=== PATIENT | male | born 2000 | race Hispanic/Latino ===

== ENCOUNTER 2021-10-25 04:21 | Emergency (ER) | payer OTHER, SELFPAY ==
[2021-10-25 04:31] LABS: Urine Blood Negative (Negative); Urine Glucose Negative (Negative); Urine Protein 1+ (Negative); Urine Specific Gravity 1.025 (1.005-1.030); Urine pH 5.5 (5.0-7.0)
[2021-10-25 04:54] LABS: SARS-CoV-2 Antigen Rapid Res Negative (Negative)
[2021-10-25 04:55] LABS: Absolute Lymphocytes (CBC) 2.1 K/uL (0.7-4.9); Hematocrit 44.7 % (39.6-49.0); Lymphocytes % 26.8 % (15.3-44.8); MPV 8.4 fL (7.6-11.3); RBC Red Blood Cell Count 5.39 M/uL (4.33-5.43)
[2021-10-25 04:58] LABS: Protime INR 1.28
[2021-10-25 04:59] LABS: Barbiturates NEGATIVE (NEGATIVE); Benzodiazepines NEGATIVE (NEGATIVE); Cocaine NEGATIVE (NEGATIVE); METHAMPHETAM NEGATIVE (NEGATIVE); Methadone NEGATIVE (NEGATIVE); Opiates NEGATIVE (NEGATIVE); Phencyclidine NEGATIVE (NEGATIVE); THC Cannibis POSITIVE (NEGATIVE)
[2021-10-25] MEDS ORDERED: NA CHLORIDE 0.9% 1,000 ML ONE (05:18)
[2021-10-25 05:20] LABS: ALT/SGPT 38 U/L (12-78); AST/SGOT 32 U/L (15-37); Alkaline Phosphatase 62 U/L (45-117); BUN Blood Urea Nitrogen 14 mg/dL (7-18); Bicarbonate 27 mmol/L (21-32); Bilirubin Direct 0.3 mg/dL (0-0.2); Bilirubin Total 1.2 mg/dL (0.2-1.0); Glomerular Filtration Rate 97 ml/min (=/>90); Glucose Level 100 mg/dL (74-106); Potassium 3.4 mmol/L (3.5-5.1); Protein, Total 8.8 g/dL (6.4-8.2); Sodium Level 138 mmol/L (136-145)
--- NOTE | 2021-10-25 06:30 | ER ---
Nurse's Notes [facility] Name: Huy Esquivel Age: 21 yrs Sex: Male : 2000 Arrival Date: 10/25/2021 Time: 04:24 Bed 17 Private MD: Diagnosis: Adjustment disorder with depressed mood;Suicidal ideations;Suicide attempt Presentation: 10/25 04:37 Chief complaint: EMS states: "We were toned out to a patient that took 17 10mg vc1 escitaloprams in suicide attempt. Pt informed us this is the third attempt. Pt stated he took them around 0350. VS 131/81 100% RA Pulse 78. Coronavirus screen: Vaccine status: Patient reports receiving the 1st dose of the Covid vaccine. Moderna At this time, the client does not indicate any symptoms associated with coronavirus-19. Ebola Screen: No symptoms or risks identified at this time. Initial Sepsis Screen: Does the patient meet any 2 criteria? No. Patient's initial sepsis screen is negative. Does the patient have a suspected source of infection? No. Patient's initial sepsis screen is negative. Risk Assessment: Do you want to hurt yourself or someone else? Patient reports desire/thoughts of hurting themselves or someone else. Provider notified. Onset of symptoms was October 25, 2021 at 03:50. 04:37 Method Of Arrival: EMS: [facility] vc1 04:37 Acuity: TAN 3 vc1 05:01 Acuity: TAN 2 tw5 05:06 Chief complaint: Patient states: "Me and my girlfriend was arguing and I got really sad vc1 and took a bunch of pills trying to off myself. My girlfriend called 911.". Triage Assessment: 04:46 General: Appears in no apparent distress. slender, Behavior is cooperative. Pain: vc1 Denies pain. EENT: No deficits noted. Neuro: Level of Consciousness is awake, alert, obeys commands, Oriented to person, place, time, situation, Appropriate for age. Cardiovascular: No deficits noted. Respiratory: Airway is patent Respiratory effort is even, unlabored, Respiratory pattern is regular, symmetrical. GI: No deficits noted. : No deficits noted. No signs and/or symptoms were reported regarding the genitourinary system. Derm: healing lacerations on left wrist. Musculoskeletal: No deficits noted. No signs and/or symptoms reported regarding the musculoskeletal system. Historical: - Allergies: 04:46 No Known Allergies; vc1 - PMHx: 04:46 None; vc1 - PSHx: 04:46 None; vc1 - Immunization history:: Client reports receiving the 1st dose of the Covid vaccine. - Social history:: Smoking status: Patient denies any tobacco usage or history of. Screenin:03 Abuse screen: Denies threats or abuse. Nutritional screening: No deficits noted. vc1 Tuberculosis screening: No symptoms or risk factors identified. Fall Risk None identified. Assessment: 04:34 Reassessment: Spoke with poison control. Possible outcomes include DISTRICT ASSOCIATE JUDGE depression, vc1 Seizures, agitation, QRS prolongation, GI issues and serotonin syndrome. Recommends doing a tox screen, check mg level, EKG, and consult Psych when medically cleared. Also recommends Benzos for agitation, seizures, of beginning of serotonin syndrome. 07:00 Reassessment: upon receiving report nurse states has not completed CSSRS initial tp1 screening form. 08:00 Reassessment: sister at bedside. tp1 08:08 General: Appears in no apparent distress. comfortable, Behavior is calm, cooperative. tp1 Pain: Denies pain. Neuro: Level of Consciousness is awake, alert, obeys commands, Oriented to person, place, time, situation. Cardiovascular: Patient's skin is warm and dry. Respiratory: Airway is patent Respiratory effort is even, unlabored. GI: Abdomen is flat, non-distended. : No signs and/or symptoms were reported regarding the genitourinary system. EENT: No signs and/or symptoms were reported regarding the EENT system. Derm: Skin is pink, warm \\T\\ dry. multiple lacerations to bilateral arms that appear to be healing. Musculoskeletal: Circulation, motion, and sensation intact. 09:49 Reassessment: spoke with Sophia FELICIANO from [place], report given. tp1 Psych: 04:57 [place] Suicide Severity Screening: In the past month, have you wished you were vc1 or wished you could go to sleep and not wake up? Patient responds "yes." Based off the client's responses additional C-SSRS screening is required. "In the past month, have you actually had any thoughts of killing yourself?" Patient responds "yes." Based off the client's response additional [place] suicide severity screening questions to be further documented on paper forms. "In your lifetime, have you ever done anything, started to do anything, or prepared to do anything to end your life?" Patient responds "yes." Patient reports suicidal intent within 3 past months. Patient reports suicidal intent occurred greater than 3 months prior. PT attempted an overdose in 2018 and one other time prior. Subjective: Patient's mood is sad, Delusions are denied, Hallucinations are denied Having thoughts of suicide. Plan for suicide is take pills. Objective: Patient is cooperative, Speech is normal, Affect is flat, Patient has mutilated themselves by lacerations to left wrist. Interventions: Removed personal items and placed in bag. Patient placed in hospital gown. Searched person for dangerous items. Urine collected and sent for urine drug test. Safety Checks: Personal items have been removed. Door is open. No visitors are present at this time. Pt denies substance abuse. Commitment: Patient will be a voluntary commitment. Vital Signs: 04:37 BP 131 / 81; Pulse 78; Resp 15; Temp 98.4; Pulse Ox 100% on R/A; Weight 61.23 kg; vc1 Height 5 ft. 7 in. (170.18 cm); Pain 0/10; 05:43 BP 117 / 78; Pulse 68; Resp 13; Pulse Ox 98% on R/A; ja4 08:07 BP 130 / 75; Pulse 68; Resp 17; Pulse Ox 100% on R/A; tp1 11:39 BP 122 / 70; Pulse 67; Resp 16; Pulse Ox 96% on R/A; tp1 04:37 Body Mass Index 21.14 (61.23 kg, 170.18 cm) vc1 ED Course: 04:24 Patient arrived in ED. vc1 04:25 Yasmani Rivera MD is Attending Physician. [place] 04:35 SARS RAPID Sent. tw5 04:45 Triage completed. vc1 04:57 Arm band placed on right wrist. vc1 05:02 Acetaminophen Sent. mh5 05:02 Basic Metabolic Panel Sent. mh5 05:02 ETOH Level Sent. mh5 05:02 Hepatic Function Sent. 5 05:02 Salicylate Sent. 5 05:03 Initial lab(s) drawn, by nh, sent to lab. Urine collected: clean catch specimen, clear, 5 EKG done, by ED staff, reviewed by Yasmani Rivera MD COVID swab sent to lab. Inserted saline lock: 20 gauge in left antecubital area, using aseptic technique. Blood collected. 05:04 Patient has correct armband on for positive identification. Placed in gown. Bed in low mh5 position. Call light in reach. Side rails up X2. Seizure precautions initiated. Warm blanket given. Pillow given. traffic monitor specialist on. Pulse ox on. NIBP on. 05:43 Stuart Syed, JODIE is Primary Nurse. ja4 07:00 Safety Checks: Personal items have been removed. The door is open or patient has been tp1 placed in a hallway bed/chair. There are no family/friend visitors at this time Other: resting in bed watching TV. 07:00 Report received from Tashi FELICIANO. tp1 08:00 Safety Checks: Personal items have been removed. The door is open or patient has been tp1 placed in a hallway bed/chair. A family member and/or friend is present and encouraged to stay. Other: Visiting with sister. 08:23 Primary Nurse role handed off by Stuart Syed RN tp1 08:23 Leslie Sharpe RN is Primary Nurse. tp1 08:55 faxed patient records to the following facilities in attempt to transfer. [facility]/ [facility]/ and [facility]. 09:00 Safety Checks: Personal items have been removed. The door is open or patient has been tp1 placed in a hallway bed/chair. There are no family/friend visitors at this time Other: resting in bed watching TV. 09:42 connected Luba Feliciano from [facility] with Feli Feliciano for patient transfer eb consultation. 10:09 Safety Checks: Personal items have been removed. The door is open or patient has been tp1 placed in a hallway bed/chair. A family member and/or friend is present and encouraged to stay. Sitter not present at this time due to or because unavailable at this time, charge nurse aware Other: mother at bedside. 10:29 administrative approval given by Lizette Ventura/ patient has been accepted to [facility]/ Dr. Kaplan has accepted the patient in transfer. 11:09 No provider procedures requiring assistance completed. tp1 11:40 IV discontinued, intact, bleeding controlled, No redness/swelling at site. Pressure tp1 dressing applied. Administered Medications: 05:10 Drug: NS 0.9% 1000 ml Route: IV; Rate: 1 bolus; Site: left antecubital; vc1 09:00 Follow up: IV Status: Completed infusion; IV Intake: 1000ml tp1 07:55 Drug: Potassium Effervescent Tablet 25 mEq Route: PO; tp1 09:00 Follow up: Response: No adverse reaction tp1 Medication: 05:07 VIS not applicable for this client. vc1 Intake: 09:00 IV: 1000ml; Total: 1000ml. tp1 Outcome: 06:29 ER care complete, transfer ordered by MD. downing 11:40 Transferred by ground EMS to other acute care facility: [facility] . Transfer tp1 form completed. 11:40 Condition: good 11:40 Instructed on the need for transfer, Demonstrated understanding of instructions. 11:40 Patient left the ED. tp1 Signatures: Yasmani Rivera MD MD cha Martinez, Maria 5 Gracy Garcia Tiffany 5 Leslie Sharpe RN RN tp1 Barbra Mcarthur RN RN vc1 Stuart Syed RN RN ja4 Corrections: (The following items were deleted from the chart) 04:54 04:31 URINE DRUG SCREEN+.LAB.BRZ drawn and sent. 5 EDNH 09:15 07:00 Safety Checks: Personal items have been removed. The door is open or patient has tp1 been placed in a hallway bed/chair. 1 :15 08:00 Safety Checks: Personal items have been removed. The door is open or patient has tp1 been placed in a hallway bed/chair. There are no family/friend visitors at this time tp1 :16 07:00 Safety Checks: Personal items have been removed. The door is open or patient has tp1 been placed in a hallway bed/chair. There are no family/friend visitors at this time tp1 :16 08:00 Safety Checks: Personal items have been removed. The door is open or patient has tp1 been placed in a hallway bed/chair. A family member and/or friend is present and encouraged to stay. tp1 :16 09:00 Safety Checks: Personal items have been removed. The door is open or patient has tp1 been placed in a hallway bed/chair. There are no family/friend visitors at this time tp1 10: 07:00 Safety Checks: Personal items have been removed. The door is open or patient has tp1 been placed in a hallway bed/chair. There are no family/friend visitors at this time Other: resting in bed watching TV tp1 11:39 08:08 Derm: Skin is pink, warm \\T\\ dry. tp1 tp1
--- NOTE | 2021-10-25 06:30 | EDPHYS ---
Physician Documentation [facility] Name: Huy Esquivel Age: 21 yrs Sex: Male : 2000 Arrival Date: 10/25/2021 Time: 04:24 Bed 17 Private MD: ED Physician Yasmani Rivera HPI: 10/25 06:25 This 21 yrs old Male presents to ER via EMS with complaints of suicidal [place] attempt. 06:25 The patient presents to the emergency department with depression, a history of a [place] suicide gesture, where the patient took pills/medications, suicide ideation. Onset: The symptoms/episode began/occurred just prior to arrival. Past psychiatric history: Prior diagnosis: depression. Associated signs and symptoms: The patient has no apparent associated signs or symptoms. Severity of symptoms: At their worst the symptoms were mild in the emergency department the symptoms are unchanged. The patient has experienced similar episodes in the past, several times. Historical: - Allergies: 04:46 No Known Allergies; vc1 - PMHx: 04:46 None; vc1 - PSHx: 04:46 None; vc1 - Immunization history:: Client reports receiving the 1st dose of the Covid vaccine. - Social history:: Smoking status: Patient denies any tobacco usage or history of. ROS: 06:26 Constitutional: Negative for fever, chills, and weight loss, Eyes: Negative for injury, [place] pain, redness, and discharge, ENT: Negative for injury, pain, and discharge, Neck: Negative for injury, pain, and swelling, Cardiovascular: Negative for chest pain, palpitations, and edema, Respiratory: Negative for shortness of breath, cough, wheezing, and pleuritic chest pain, Abdomen/GI: Negative for abdominal pain, nausea, vomiting, diarrhea, and constipation, Back: Negative for injury and pain, : Negative for injury, bleeding, discharge, and swelling, MS/Extremity: Negative for injury and deformity, Skin: Negative for injury, rash, and discoloration, Neuro: Negative for headache, weakness, numbness, tingling, and seizure, Allergy/Immunology: Negative for hives, rash, and allergies, Endocrine: Negative for neck swelling, polydipsia, polyuria, polyphagia, and marked weight changes, Hematologic/Lymphatic: Negative for swollen nodes, abnormal bleeding, and unusual bruising. 06:26 Psych: Positive for depression, suicidal ideation. 06:26 Psych: Positive for suicide gesture. [place] Exam: 06:26 Constitutional: This is a well developed, well nourished patient who is awake, alert, [place] and in no acute distress. Head/Face: Normocephalic, atraumatic. Eyes: Pupils equal round and reactive to light, extra-ocular motions intact. Lids and lashes normal. Conjunctiva and sclera are non-icteric and not injected. Cornea within normal limits. Periorbital areas with no swelling, redness, or edema. ENT: Nares patent. No nasal discharge, no septal abnormalities noted. Tympanic membranes are normal and external auditory canals are clear. Oropharynx with no redness, swelling, or masses, exudates, or evidence of obstruction, uvula midline. Mucous membranes moist. Neck: Trachea midline, no thyromegaly or masses palpated, and no cervical lymphadenopathy. Supple, full range of motion without nuchal rigidity, or vertebral point tenderness. No Meningismus. Chest/axilla: Normal chest wall appearance and motion. Nontender with no deformity. No lesions are appreciated. Cardiovascular: Regular rate and rhythm with a normal S1 and S2. No gallops, murmurs, or rubs. Normal PMI, no JVD. No pulse deficits. Respiratory: Lungs have equal breath sounds bilaterally, clear to auscultation and percussion. No rales, rhonchi or wheezes noted. No increased work of breathing, no retractions or nasal flaring. Abdomen/GI: Soft, non-tender, with normal bowel sounds. No distension or tympany. No guarding or rebound. No evidence of tenderness throughout. Back: No spinal tenderness. No costovertebral tenderness. Full range of motion. Male : Normal genitalia with no discharge or lesions. Skin: Warm, dry with normal turgor. Normal color with no rashes, no lesions, and no evidence of cellulitis. MS/ Extremity: Pulses equal, no cyanosis. Neurovascular intact. Full, normal range of motion. Neuro: Awake and alert, GCS 15, oriented to person, place, time, and situation. Cranial nerves II-XII grossly intact. Motor strength 5/5 in all extremities. Sensory grossly intact. Cerebellar exam normal. Normal gait. Psych: Awake, alert, with orientation to person, place and time. Behavior, mood, and affect are within normal limits. 06:26 ECG was reviewed by the Attending Physician. Vital Signs: 04:37 BP 131 / 81; Pulse 78; Resp 15; Temp 98.4; Pulse Ox 100% on R/A; Weight 61.23 kg; vc1 Height 5 ft. 7 in. (170.18 cm); Pain 0/10; 05:43 BP 117 / 78; Pulse 68; Resp 13; Pulse Ox 98% on R/A; ja4 08:07 BP 130 / 75; Pulse 68; Resp 17; Pulse Ox 100% on R/A; tp1 11:39 BP 122 / 70; Pulse 67; Resp 16; Pulse Ox 96% on R/A; tp1 04:37 Body Mass Index 21.14 (61.23 kg, 170.18 cm) vc1 MDM: 04:25 Patient medically screened. [facility] 10/25 04:25 Order name: Urine Drug Screen; Complete Time: 05:21 [facility] 10/25 04:26 Order name: Acetaminophen; Complete Time: 05: [facility] 10/25 04:26 Order name: Basic Metabolic Panel; Complete Time: 05: [facility] 10/25 04:26 Order name: CBC with Diff; Complete Time: 05: [facility] 10/25 04:26 Order name: ETOH Level; Complete Time: 05: [facility] 10/25 04:26 Order name: Hepatic Function; Complete Time: 05: [facility] 10/25 04:25 Order name: EKG; Complete Time: 04:26 [facility] 10/25 04:25 Order name: EKG - Nurse/Tech; Complete Time: 05:02 [facility] 10/25 04:25 Order name: IV Saline Lock; Complete Time: 05:02 [facility] 10/25 04:25 Order name: Labs collected and sent; Complete Time: 05:02 [facility] 10/25 04:25 Order name: Suicide Screening ([place]); Complete Time: 05:02 [facility] 10/25 04:25 Order name: Urine Dipstick-Ancillary (obtain specimen); Complete Time: 05:02 [facility] 10/25 04:26 Order name: PT-INR; Complete Time: 05: [facility] 10/25 04:26 Order name: Ptt, Activated; Complete Time: 05: [facility] 10/25 04:26 Order name: Salicylate; Complete Time: 05: [facility] 10/25 04:26 Order name: EKG; Complete Time: 04:27 [place] 10/25 04:26 Order name: SARS RAPID; Complete Time: 05:[address] [facility] 10/25 04:31 Order name: Urine Dipstick-Ancillary; Complete Time: 05:21 EDMS 10/25 08:22 Order name: Diet Finger Food; Complete Time: 08:23 tp1 10/25 04:25 Order name: Suicide Screening ([place]); Complete Time: 05:03 vc 10/25 04:25 Order name: Suicide Precautions; Complete Time: 05:05 vc 10/25 04:26 Order name: EKG - Nurse/Tech; Complete Time: 05:[address] [facility] 10/25 04:26 Order name: IV Saline Lock; Complete Time: 05:[address] [facility] 10/25 04:26 Order name: Labs collected and sent; Complete Time: 05:[address] [facility] 10/25 04:26 Order name: Suicide Precautions; Complete Time: 05:[address] [facility] 10/25 04:26 Order name: Suicide Screening ([place]); Complete Time: 05:[address] [facility] 10/25 04:26 Order name: Urine Dipstick-Ancillary (obtain specimen); Complete Time: 04:[address] [facility] 10/25 04:45 Order name: Seizure Precautions; Complete Time: 05:02 [facility] 10/25 06:23 Order name: Misc. Order: call poison control, follow recomedations; Complete Time: 06:55cha EC:26 Rate is 73 beats/min. Rhythm is regular. QRS [place] is Normal. DC interval is normal. QRS [place] interval is normal. QT interval is normal. No Q waves. T waves are Normal. Clinical impression: Normal ECG and No evidence of ischemia. Interpreted by me. Reviewed by me. Administered Medications: 05:10 Drug: NS 0.9% 1000 ml Route: IV; Rate: 1 bolus; Site: left antecubital; vc1 09:00 Follow up: IV Status: Completed infusion; IV Intake: 1000ml tp1 07:55 Drug: Potassium Effervescent Tablet 25 mEq Route: PO; tp1 09:00 Follow up: Response: No adverse reaction tp1 Disposition Summary: 10/25/21 06:29 Transfer Ordered Transfer Location: [facility] [place] Reason: Higher level of care [place] Condition: Fair [place] Problem: new [place] Symptoms: have improved [place] Accepting Physician: Dr. Eusebio Benson(10/25/21 11:40) tp1 Diagnosis - Adjustment disorder with depressed mood [place] - Suicidal ideations [place] - Suicide attempt [place] Forms: - Medication Reconciliation Form [place] - SBAR form [place] Signatures: Dispatcher [employer] EDMS Yasmani Rivera MD MD cha Attema, Lee, JIRA ADMINISTRATOR-C JIRA ADMINISTRATOR-Cla1 Gracy Garcia Tiffany RN RN tp1 Barbra Mcarthur RN RN vc1 Corrections: (The following items were deleted from the chart) 04:53 04:26 ACETAMINOPHEN+C.LAB.BRZ ordered. EDMS EDMS 04:53 04:26 BASIC METABOLIC PANEL+C.LAB.BRZ ordered. EDMS EDMS 04:53 04:26 CBC+H.LAB.BRZ ordered. EDMS EDMS 04:53 04:26 ETHANOL+C.LAB.BRZ ordered. EDMS EDMS 04:53 04:26 HEPATIC FUNCTION+C.LAB.BRZ ordered. EDMS EDMS 04:53 04:26 PROTIME (+INR)+COAG.LAB.BRZ ordered. EDMS EDMS 04:53 04:26 PTT, ACTIVATED+COAG.LAB.BRZ ordered. EDMS EDMS 04:54 04:26 SALICYLATE+C.LAB.BRZ ordered. EDMS EDMS 04:54 04:27 URINE DRUG SCREEN+UC.LAB.BRZ ordered. EDMS EDMS 10:31 06:29 to psych [place] eb 11:40 10:31 Dr. Eusebio Benson eb tp1
[2021-10-25] MEDS ORDERED: POTASSIUM 25 MEQ EFFERV TAB ONE (07:58)
--- NOTE | 2021-10-26 15:57 | EKG ---
Test Date: 2021-10-25 Test Time: 04:53:03 Management Accounts Manager: SREEKANTH MEASUREMENT RESULTS: Intervals: Rate: 73 VT: 134 QRSD: 76 QT: 358 QTc: 394 [place]: P: 68 VT: 134 QRS: 91 T: 58 INTERPRETIVE STATEMENTS: Normal sinus rhythm with sinus arrhythmia Rightward axis Borderline ECG No previous ECG available for comparison Electronically Signed On 10-26-21 15:54:35 CDT by Vahe Mcelroy
[2021-10-26 20:56] VITALS: TEMP 98.4
[2021-10-26 21:36] VITALS: BP 122/70; O2SAT 96
== END 2021-10-25 11:40 ==
LOC: ER 04:21
DX: T50.902A Poisoning by unspecified drugs, medicaments and biological substances, intentional self-harm, initial encounter (principal); F43.21 Adjustment disorder with depressed mood; Z20.822 Contact with and (suspected) exposure to COVID-19
CPT/HCPCS: 96361; 93005 ×2; 85025; 80048; 36415; 80320; 80329 ×2; 85610; 80076; 85730; 81003; 80307; 96360; 99285; 87811; J7030

== ENCOUNTER 2022-01-09 18:44 | Emergency (ER) | payer OTHER ==
[2022-01-09 20:28] LABS: Urine Blood Negative (Negative); Urine Glucose Negative (Negative); Urine Protein 1+ (Negative)
[2022-01-09 20:30] LABS: Absolute Lymphocytes (CBC) 2.3 K/uL (0.7-4.9); Hematocrit 42.3 % (39.6-49.0); Lymphocytes % 23.1 % (15.3-44.8); MCV 82.9 fL (80-100); MPV 8.3 fL (7.6-11.3)
[2022-01-09 20:40] LABS: SARS-CoV-2 Antigen Rapid Res Negative (Negative)
[2022-01-09 20:41] LABS: Protime INR 1.17
[2022-01-09 20:58] LABS: Barbiturates NEGATIVE (NEGATIVE); Benzodiazepines NEGATIVE (NEGATIVE); Cocaine NEGATIVE (NEGATIVE); METHAMPHETAM NEGATIVE (NEGATIVE); Methadone NEGATIVE (NEGATIVE); Opiates NEGATIVE (NEGATIVE); Phencyclidine NEGATIVE (NEGATIVE); THC Cannibis POSITIVE (NEGATIVE)
[2022-01-09 20:58] LABS: ALT/SGPT 43 U/L (12-78); AST/SGOT 37 U/L (15-37); Albumin 4.5 g/dL (3.4-5.0); Alkaline Phosphatase 69 U/L (45-117); BUN Blood Urea Nitrogen 14 mg/dL (7-18); Bicarbonate 27 mmol/L (21-32); Bilirubin Direct 0.2 mg/dL (0-0.2); Bilirubin Total 0.9 mg/dL (0.2-1.0); Glomerular Filtration Rate 126 ml/min (=/>90); Glucose Level 92 mg/dL (74-106); Potassium 3.8 mmol/L (3.5-5.1); Protein, Total 8.3 g/dL (6.4-8.2); Sodium Level 137 mmol/L (136-145)
--- NOTE | 2022-01-09 23:11 | ER ---
Nurse's Notes [facility] Name: Huy Esquivel Age: 21 yrs Sex: Male : 2000 Arrival Date: 01/09/2022 Time: 19:01 Bed 25 Private MD: Diagnosis: Other depressive episodes Presentation: 01/09 19:01 Chief complaint: Patient states: He is having ongoing suicidal thoughts without a plan. kb3 PT brought in by radio electronics officer voluntarily requesting help. Reports ongoing stressors including relationship problems and financial problems. Coronavirus screen: Vaccine status: Patient reports being unvaccinated. Client denies travel out of the [place] in the last 14 days. Ebola Screen: Patient negative for fever greater than or equal to 101.5 degrees Fahrenheit, and additional compatible Ebola Virus Disease symptoms Patient denies exposure to infectious person. Patient denies travel to an Ebola-affected area in the 21 days before illness onset. Initial Sepsis Screen: Does the patient meet any 2 criteria? No. Patient's initial sepsis screen is negative. Does the patient have a suspected source of infection? No. Patient's initial sepsis screen is negative. Risk Assessment: Do you want to hurt yourself or someone else? Patient reports no desire to harm self or others. Onset of symptoms is unknown. 19:01 Method Of Arrival: Ambulatory kb3 19:01 Acuity: TAN 2 kb3 Triage Assessment: 19:03 General: Appears in no apparent distress. Behavior is calm, cooperative. Pain: Denies kb3 pain. Historical: - Allergies: 19:03 No Known Allergies; kb3 - PMHx: 19:03 Depressive disorder; Anxiety; kb3 - PSHx: 19:03 None; kb3 - Immunization history:: Adult Immunizations up to date, Client reports receiving the 1st dose of the Covid vaccine, Last tetanus immunization: up to date. - Social history:: Smoking status: Patient denies any tobacco usage or history of. Screenin:10 Abuse screen: Denies threats or abuse. Nutritional screening: No deficits noted. em6 Tuberculosis screening: No symptoms or risk factors identified. Fall Risk Total Talley Fall Scale indicates No Risk (0-24 pts). Assessment: 20:10 General: Appears in no apparent distress. Behavior is cooperative. Pain: Denies pain. em6 Neuro: Knapp Agitation-Sedation Scale (RASS): 0 - Alert and Calm. Cardiovascular: Patient's skin is warm and dry. Respiratory: Airway is patent Respiratory effort is even, unlabored, Respiratory pattern is regular, symmetrical, Breath sounds are clear bilaterally. GI: Abdomen is non-distended, Bowel sounds present X 4 quads. Abd is soft and non tender X 4 quads. : No signs and/or symptoms were reported regarding the genitourinary system. EENT: No signs and/or symptoms were reported regarding the EENT system. Derm: No signs and/or symptoms reported regarding the dermatologic system. Musculoskeletal: Circulation, motion, and sensation intact. Range of motion: intact in all extremities. 21:10 Reassessment: Patient appears in no apparent distress at this time. No changes from em6 previously documented assessment. Patient and/or family updated on plan of care and expected duration. Pain level reassessed. Patient is alert, oriented x 3, equal unlabored respirations, skin warm/dry/pink. offered patient food, fluids and if he needed to use the restroom. 22:11 Reassessment: Patient appears in no apparent distress at this time. No changes from em6 previously documented assessment. Patient and/or family updated on plan of care and expected duration. Pain level reassessed. Patient is alert, oriented x 3, equal unlabored respirations, skin warm/dry/pink. patient on the phone with [employer]. Psych: 20:10 [place] Suicide Severity Screening: In the past month, have you wished you were em6 or wished you could go to sleep and not wake up? Patient responds "No." "In the past month, have you actually had any thoughts of killing yourself?" Patient responds "no." "In your lifetime, have you ever done anything, started to do anything, or prepared to do anything to end your life?" Patient responds "no.". Subjective: Patient's mood is sad, Delusions are denied, Hallucinations are denied. Objective: Patient is cooperative, Speech is normal, Affect is appropriate, Patient has mutilated themselves by healed self cut in the left upper arm. Interventions: Removed personal items and placed in bag. Patient placed in hospital gown. Searched person for dangerous items. Urine collected and sent for urine drug test. Belonging list filled out. Safety Checks: Personal items have been removed. Door is open. No visitors are present at this time. Pt denies substance abuse. Commitment: Patient will be a voluntary commitment. Vital Signs: 19:01 BP 115 / 74; Pulse 76; Resp 20; Temp 98; Pulse Ox 97% ; Weight 68.04 kg; Height 5 ft. 6 kb3 in. (167.64 cm); Pain 0/10; 20:10 BP 122 / 76; Pulse 74; Resp 18; Pulse Ox 100% on R/A; em6 23:22 BP 126 / 74; Pulse 72; Resp 18; Pulse Ox 100% on R/A; em6 19:01 Body Mass Index 24.21 (68.04 kg, 167.64 cm) kb3 ED Course: 19:01 Patient arrived in ED. kb3 19:03 Triage completed. kb3 19:03 Arm band placed on right wrist. EKG completed in triage. Results shown to MD. EKG kb3 completed in triage. Results shown to MD. 19:07 Yasmani Bishop PA is PHCP. cp 19:07 Spenser Galvin MD is Attending Physician. cp 20:03 Kimberly Michelle, JODIE is Primary Nurse. em6 20:10 Patient has correct armband on for positive identification. Placed in gown. Bed in low em6 position. Call light in reach. Side rails up X 1. Warm blanket given. 20:30 Inserted saline lock: 20 gauge in left antecubital area, using aseptic technique. Blood em6 collected. 20:38 SARS RAPID Sent. em6 20:38 Acetaminophen Sent. em6 20:38 Basic Metabolic Panel Sent. em6 20:38 ETOH Level Sent. em6 20:38 Hepatic Function Sent. em6 20:38 PT-INR Sent. em6 20:38 Ptt, Activated Sent. em6 20:38 Salicylate Sent. em6 20:38 Urine Drug Screen Sent. em6 23:23 No provider procedures requiring assistance completed. IV discontinued, intact, em6 bleeding controlled, No redness/swelling at site. Pressure dressing applied. Administered Medications: No medications were administered Medication: 23:00 VIS not applicable for this client. em6 Outcome: 23:10 Discharge ordered by MD. cp 23:23 Discharged to home ambulatory, with family. em6 23:23 Condition: stable 23:23 Discharge instructions given to patient, family, Instructed on discharge instructions, follow up and referral plans. mental health resources Demonstrated understanding of instructions, follow-up care. 23:25 Patient left the ED. em6 Signatures: Yasmani Bishop PA PA cp Martinez, Erika, RN RN em6 Chelo Choe RN RN kb3 Corrections: (The following items were deleted from the chart) 21:17 21:10 Reassessment: Patient appears in no apparent distress at this time. No changes em6 from previously documented assessment. Patient and/or family updated on plan of care and expected duration. Pain level reassessed. Patient is alert, oriented x 3, equal unlabored respirations, skin warm/dry/pink. em6
--- NOTE | 2022-01-09 23:11 | EDPHYS ---
Physician Documentation [facility] Name: Huy Esquivel Age: 21 yrs Sex: Male : 2000 Arrival Date: 01/09/2022 Time: 19:01 Bed 25 Private MD: ED Physician Spenser Galvin HPI: 01/09 19:15 This 21 yrs old Male presents to ER via Ambulatory with complaints of Suicidal cp Ideation. 23:00 Patient is a 21 y/o male brought to ED by law enforcement with concern for suicidal cp ideation. Patient reportedly sent text to girlfriend that he wanted to cut himself. Patient reports history of self-cutting and admits that he has been having thoughts recently of self cutting. Patient denies that he wants to kill himself. Historical: - Allergies: 19:03 No Known Allergies; kb3 - PMHx: 19:03 Depressive disorder; Anxiety; kb3 - PSHx: 19:03 None; kb3 - Immunization history:: Adult Immunizations up to date, Client reports receiving the 1st dose of the Covid vaccine, Last tetanus immunization: up to date. - Social history:: Smoking status: Patient denies any tobacco usage or history of. ROS: 19:15 Constitutional: Negative for body aches, chills, fever, poor PO intake. cp 19:15 Eyes: Negative for injury, pain, redness, and discharge. cp 19:15 ENT: Negative for drainage from ear(s), ear pain, sore throat, difficulty swallowing, difficulty handling secretions. 19:15 Cardiovascular: Negative for chest pain, edema, palpitations. 19:15 Respiratory: Negative for cough, shortness of breath, wheezing. 19:15 Abdomen/GI: Negative for abdominal pain, nausea, vomiting, and diarrhea. 19:15 Skin: Negative for cellulitis, laceration(s). 19:15 Neuro: Negative for altered mental status, dizziness, headache, weakness. 19:15 Psych: Negative for auditory hallucinations, visual hallucinations, homicidal ideation, suicide gesture. 19:15 All other systems are negative. Exam: 19:20 Constitutional: The patient appears in no acute distress, alert, awake, comfortable, cp non-toxic, well developed, well nourished. 19:20 Head/Face: Normocephalic, atraumatic. cp 19:20 Eyes: Periorbital structures: appear normal, Conjunctiva: normal, no exudate, no injection, Sclera: no appreciated abnormality, Lids and lashes: appear normal, bilaterally. 19:20 ENT: External ear(s): are unremarkable, Nose: is normal, Mouth: Lips: moist, Oral mucosa: moist, Posterior pharynx: Airway: no evidence of obstruction, patent. 19:20 Chest/axilla: Inspection: normal. 19:20 Cardiovascular: Rate: normal, Rhythm: regular. 19:20 Respiratory: the patient does not display signs of respiratory distress, Respirations: normal, no use of accessory muscles, no retractions, labored breathing, is not present, Breath sounds: are clear throughout, no decreased breath sounds, no stridor, no wheezing. 19:20 Abdomen/GI: Exam negative for discomfort, distension, guarding, Inspection: abdomen appears normal. 19:20 Neuro: Orientation: to person, place \T\ time. Mentation: is normal, Motor: moves all fours, strength is normal, Gait: is steady, at a normal pace, without difficulty. 19:20 Psych: Behavior/mood is pleasant, cooperative, Affect is calm, Judgement / Insight is normal. 20:15 ECG was reviewed by the Attending Physician. cp Vital Signs: 19:01 BP 115 / 74; Pulse 76; Resp 20; Temp 98; Pulse Ox 97% ; Weight 68.04 kg; Height 5 ft. 6 kb3 in. (167.64 cm); Pain 0/10; 20:10 BP 122 / 76; Pulse 74; Resp 18; Pulse Ox 100% on R/A; em6 23:22 BP 126 / 74; Pulse 72; Resp 18; Pulse Ox 100% on R/A; em6 19:01 Body Mass Index 24.21 (68.04 kg, 167.64 cm) kb3 MDM: 19:09 Patient medically screened. cp 20:00 Differential diagnosis: acute psychotic break, depression, psychosis secondary to cp non-compliance, suicidal ideation, homicidal ideation. 23:05 Data reviewed: vital signs, nurses notes, lab test result(s), EKG. cp 23:05 Test interpretation: by ED physician or midlevel provider: ECG. Counseling: I had a cp detailed discussion with the patient and/or guardian regarding: the historical points, exam findings, and any diagnostic results supporting the discharge/admit diagnosis, lab results, the need for outpatient follow up, a psychiatrist, to return to the emergency department if symptoms worsen or persist or if there are any questions or concerns that arise at home. Other consultation: [facility] screening complete and patient felt stable for discharge and no immediate threat to self. Patient has local therapist and therapist in [place] for f/u. 01/09 19:08 Order name: Acetaminophen; Complete Time: 21:00 cp 01/09 19:08 Order name: Basic Metabolic Panel; Complete Time: 21:00 cp 01/09 19:08 Order name: CBC with Diff; Complete Time: 21:00 cp 01/09 21:01 Interpretation: Normal except: EOSINOPHIL % 12.0; EOSA 1.2. cp 01/09 19:08 Order name: ETOH Level; Complete Time: 21:00 cp 01/09 19:08 Order name: Hepatic Function; Complete Time: 21:00 cp 01/09 19:08 Order name: PT-INR; Complete Time: 21:00 cp 01/09 19:08 Order name: Ptt, Activated; Complete Time: 21:00 cp 01/09 19:08 Order name: Salicylate; Complete Time: 21:00 cp 01/09 19:08 Order name: Urine Drug Screen; Complete Time: 21:00 cp 01/09 19:08 Order name: EKG - Nurse/Tech; Complete Time: 20:11 cp 01/09 19:08 Order name: IV Saline Lock; Complete Time: 20:38 cp 01/09 20:13 Order name: SARS RAPID; Complete Time: 21:00 em6 01/09 20:28 Order name: Urine Dipstick-Ancillary; Complete Time: 21:00 EDMS 01/09 19:08 Order name: Labs collected and sent; Complete Time: 20:38 cp 01/09 19:08 Order name: Suicide Precautions; Complete Time: 20:11 cp 01/09 19:08 Order name: Suicide Screening ([place]); Complete Time: 20:38 cp 01/09 19:08 Order name: Urine Dipstick-Ancillary (obtain specimen); Complete Time: 20:38 cp EC:15 Rate is 62 beats/min. Rhythm is regular. IA interval is normal. QRS interval is normal. cp QT interval is normal. T waves are Inverted in lead aVR. Interpreted by me. Reviewed by me. Administered Medications: No medications were administered Disposition Summary: 01/09/22 23:10 Discharge Ordered Location: Home cp Problem: an acute exacerbation cp Symptoms: have improved cp Condition: Stable cp Diagnosis - Other depressive episodes cp Followup: cp - With: Private Physician - When: 2 - 3 days - Reason: Recheck today's complaints Discharge Instructions: - Discharge Summary Sheet cp - Self-Destructive Behavior cp - Managing Depression, Adult cp - Supporting Someone With Self-Harming Behavior cp - Self-Harming Behavior Information cp Forms: - Medication Reconciliation Form cp - Thank You Letter cp - Antibiotic Education cp - Prescription Opioid Use cp Addendum: 01/13/2022 13:56 Co-signature as Attending Physician, Spenser Galvin MD. r n Signatures: Dispatcher [employer] EDSpenser Marmolejo MD MD rn Yasmani Bishop PA PA cp Chelo Choe RN RN kb3 Corrections: (The following items were deleted from the chart) 01/10 21:26 01/09 22:00 Patient is a 21 y/o male brought to ED by law enforcement with concern for cp suicidal ideation. Patient reportedly sent text to girlfriend that he wanted to cut himself. Patient reports history of self-cutting and admits that he has been having thoughts recently of self cutting. Patient denies that he wants to kill himself. cp
[2022-01-09 23:41] VITALS: TEMP 98
[2022-01-09 23:46] VITALS: O2SAT 100
[2022-01-09 23:51] VITALS: BP 126/74
--- NOTE | 2022-01-12 13:53 | EKG ---
Test Date: 2022-01-09 Test Time: 20:08:06 Entry Rep: MEASUREMENT RESULTS: Intervals: Rate: 62 NM: 116 QRSD: 78 QT: 384 QTc: 389 [place]: P: 44 NM: 116 QRS: 89 T: 51 INTERPRETIVE STATEMENTS: Normal sinus rhythm Normal ECG No previous ECG available for comparison Electronically Signed On 01-12-22 13:50:29 [employer] CONSULTANT by Gage Velasquez
== END 2022-01-09 23:25 | disposition home or self-care (01) ==
LOC: ER 18:44
DX: F32.89 Other specified depressive episodes (principal); Z20.822 Contact with and (suspected) exposure to COVID-19
CPT/HCPCS: 36415; 80048; 80076; 80307; 80320; 80329; 81003; 85025; 85610; 85730; 87811; 93005; 99284